=== PATIENT | male | born 1985 | race Caucasian/White ===

== ENCOUNTER 2019-10-17 08:56 | Outpatient (CLI) | payer BC, SELFPAY ==
--- NOTE | 2019-10-17 | CT_ITS ---
WS: [id number] CT neck w con* [id number] REASON FOR EXAM: SWELLING IN NECK IV CONTRAST ADMINISTERED Omnipaque 300, 95 mL TOTAL EXAM DLP: All CT scans at [facility] use at least one of these dose optimization techniques: automat ed exposure control; mA and/or kV adjustment per patient size (includes targeted exams where dose is matched to clinical indication); or iterative reconstruction. FINDINGS: This study shows inflammatory changes in the ethmoid sinuses. The remaining sinuses appear to be open. The parotid glands submaxillary glands are normal. A large lymph node is seen overriding the submaxillary region on the right side measures 1.60 cm and on the left sided node measures 1.05 cm. The subcutaneous middle area shows a lymph node measures 7.6 2 mm with numerous small lymph nodes seen. The anterior chain shows noted throughout the cervical spine extending down to the neck were multiple small nodes are present. The thyroid gland was normal right and left side no definite masses but there is lymphadenopathy bila terally and extends into the supraclavicular areas bilaterally. The tongue did not show any infiltrating changes. The prevertebral area showed no masses. The para pharyngeal area and nasopharynx were normal. CT/CT neck w con* [id number] IMPRESSION: Anterior chain lymphadenopathy with prominent nodes seen in the submaxillary ar ea on the right and submental areas with numerous small nodes throughout the re maining anterior chain of the neck.
[2019-10-17] MEDS: iohexol 300 mg/mL 100 mL Btl IV (09:30)
== END 2019-10-17 08:57 | disposition home or self-care (01) ==
LOC: RADWPI 08:59
PROVIDERS: PCP Family Medicine; Visit Provider Specialist
DX: R59.1 Generalized enlarged lymph nodes (principal)
CPT/HCPCS: 70491; Q9967

== ENCOUNTER → 2022-05-30 10:19 | Outpatient (BNVA) | payer BC, SELFPAY | PROVIDERS: PCP Family Medicine; Referring Provider Nurse Practitioner Family; Visit Provider Orthopaedic Surgery | DX: M77.12 Lateral epicondylitis, left elbow (principal); R20.0 Anesthesia of skin; R20.2 Paresthesia of skin | CPT/HCPCS: 73080 ==